=== PATIENT | male | born 1935 | race Caucasian/White ===

== ENCOUNTER 2018-09-09 06:38 | Day surgery (SDC) | payer MEDICARE ==
[~2018-09-09 06:38] MED LIST: BALANCED SALT IRRIG SOLN COMB1 500 ML, EPINEPHRINE-PF 1:1000 0.5 MG IO ONE
[2018-09-09] MEDS ORDERED: IV NORMAL SALINE 1000 ML BAG IV ONE (06:39)
[2018-09-09] MEDS ORDERED: CIPROFLOXACIN 0.3% OPHT DROP 2.5 ML BOTTLE ONE (06:47)
[2018-09-09] MEDS ORDERED: KETOROLAC 0.5% OPHT DROP 3 ML BOTTLE ONE (06:47)
[2018-09-09] MEDS ORDERED: TROPICAMIDE 1% OPHT DROP 3 ML BOTTLE ONE (06:47)
[2018-09-09] MEDS ORDERED: CYCLOPENTOLATE 1% OPHT DROP 2 ML BOTTLE ONE (06:48)
[2018-09-09] MEDS ORDERED: PHENYLEPHRINE 2.5% OPHT DROP 2 ML BOTTLE ONE (06:48)
[2018-09-09] MEDS ORDERED: MOXIFLOXACIN HCL 3 ML OPHT DROPS ONE (07:47)
[2018-09-09] MEDS ORDERED: TIMOLOL MALEATE 0.5% OPHT DROP 5 ML BOTTLE ONE (07:48)
[2018-09-09] MEDS ORDERED: ACETYLCHOLINE CHLORIDE 1% OPHT 1 EA KIT ONE (07:48)
[2018-09-09] MEDS ORDERED: HYALURONATE SODIUM 8.5 MG/0.85 ML DISP.SYRIN ONE (07:48)
[2018-09-09] MEDS ORDERED: TETRACAINE HCL 0.5% OPHT DROP 2 ML BOTTLE ONE (07:48)
[2018-09-09] MEDS ORDERED: NEO/POLYMYX B/DEXAME OPHT OINT 3.5 GM TUBE ONE (07:48)
[2018-09-09] MEDS ORDERED: HYALURONIDASE,OVINE 200 UNITS/ML VIAL ONE (07:48)
[2018-09-09] MEDS ORDERED: BALANCED SALT IRRIG SOLN COMB2 15 ML IRRIG.SOLN ONE (07:48)
[2018-09-09] MEDS ORDERED: LIDOCAINE-MPF 2% 5 ML VIAL ONE (07:48)
[2018-09-09] MEDS ORDERED: HYALURONATE SODIUM 12.8 MG/0.8 ML DISP.SYRIN ONE (07:49)
[2018-09-09] MEDS ORDERED: FENTANYL CITRATE 100 MCG/2 ML AMPUL ONE (07:54)
[2018-09-09] MEDS ORDERED: BALANCED SALT IRRIG SOLN COMB1 500 ML ONE (08:33)
== END 2018-09-09 10:15 | disposition home or self-care (01) ==
LOC: DS 06:38
PROVIDERS: ATTEND Ophthalmology
DX: E11.36 Type 2 diabetes mellitus with diabetic cataract (principal); I10 Essential (primary) hypertension; K29.70 Gastritis, unspecified, without bleeding; Z98.890 Other specified postprocedural states; Z79.899 Other long term (current) drug therapy; Z88.8 Allergy status to other drugs, medicaments and biological substances; E66.9 Obesity, unspecified; D64.9 Anemia, unspecified; Z87.891 Personal history of nicotine dependence
CPT/HCPCS: 66984; 71045; 82962; J0171; J3010; J3471; J3490; J7321 ×2; V2632; A4663; J7030

== ENCOUNTER 2019-04-26 09:27 | Day surgery (SDC) | payer MEDICARE ==
[2019-04-26] MEDS ORDERED: CIPROFLOXACIN 0.3% OPHT DROP 2.5 ML BOTTLE ONE (09:46)
[2019-04-26] MEDS ORDERED: FENTANYL CITRATE 100 MCG/2 ML AMPUL ONE (09:50)
[2019-04-26] MEDS ORDERED: PILOCARPINE 2% ONE (09:50)
[2019-04-26 09:52] LABS: BASOPHILS # (AUTO) 0.1 K/uL (0.0-8.0); BASOPHILS % (AUTO) 0.6 % (0.0-2.0); EOSINOPHILS # (AUTO) 0.2 K/uL (0.0-0.7); EOSINOPHILS % (AUTO) 2.1 % (0.0-7.0); HEMATOCRIT 43.8 % (36.7-47.1); HEMOGLOBIN 14.4 g/dL (12.5-16.3); LYMPHOCYTES # (AUTO) 2.8 K/uL (20.0-40.0); LYMPHOCYTES % (AUTO) 26.9 % (20.5-51.5); MEAN CORPUSCULAR HEMOGLOBIN 30.3 uug (23.8-33.4); MEAN CORPUSCULAR HGB CONC 33 g/dL (32.5-36.3); MEAN CORPUSCULAR VOLUME 92.4 fL (73.0-96.2); MONOCYTES # (AUTO) 0.9 K/uL (2.0-10.0); MONOCYTES % (AUTO) 8.2 % (0.0-11.0); NEUTROPHILS # (AUTO) 6.6 K/uL (1.8-8.9); NEUTROPHILS % (AUTO) 62.2 % (38.5-71.5); PLATELET COUNT (AUTO) 184 K/uL (152-348); RED BLOOD CELL COUNT(AUTO) 4.74 MIL/uL (4.06-5.63); WHITE BLOOD COUNT (AUTO) 10.6 K/uL (3.6-10.2)
[2019-04-26] MEDS ORDERED: ACETYLCHOLINE CHLORIDE 1% OPHT 1 EA KIT ONE (09:57)
[2019-04-26] MEDS ORDERED: BALANCED SALT IRRIG SOLN COMB2 15 ML IRRIG.SOLN ONE (09:57)
[2019-04-26] MEDS ORDERED: BUPIVACAINE PF 0.5% 30 ML VIAL ONE (09:57)
[2019-04-26] MEDS ORDERED: TETRACAINE HCL 0.5% OPHT DROP 2 ML BOTTLE ONE (09:57)
[2019-04-26] MEDS ORDERED: LIDOCAINE-MPF 2% 5 ML VIAL ONE (09:57)
[2019-04-26] MEDS ORDERED: MOXIFLOXACIN HCL 3 ML OPHT DROPS ONE (09:57)
[2019-04-26] MEDS ORDERED: TIMOLOL MALEATE 0.5% OPHT DROP 5 ML BOTTLE ONE (09:57)
[2019-04-26] MEDS ORDERED: HYALURONIDASE,OVINE 200 UNITS/ML VIAL ONE (09:58)
[2019-04-26] MEDS ORDERED: HYALURONATE SODIUM 12.8 MG/0.8 ML DISP.SYRIN ONE (09:58)
[2019-04-26] MEDS ORDERED: TOBRAMYCIN/DEXAMETH OPHT OINT 3.5 GM TUBE ONE (09:59)
[2019-04-26 10:00] LABS: CREATININE 1.1 mg/dL (0.6-1.3); POTASSIUM 4.7 mmol/L (3.5-5.1)
[2019-04-26 10:05] LABS: BILIRUBIN,TOTAL 0.9 mg/dL (0.2-1.0); TOTAL PROTEIN, SERUM 8.1 g/dL (6.4-8.2)
[2019-04-26] MEDS ORDERED: IRR STERIL WATER FOR IRR 1000 ML BOTTLE IR ONE (10:52)
== END 2019-04-26 12:00 | disposition home or self-care (01) ==
LOC: DS 09:27
PROVIDERS: ATTEND Ophthalmology
DX: E11.36 Type 2 diabetes mellitus with diabetic cataract (principal); H26.8 Other specified cataract; K21.9 Gastro-esophageal reflux disease without esophagitis; E03.9 Hypothyroidism, unspecified; J44.9 Chronic obstructive pulmonary disease, unspecified; E78.5 Hyperlipidemia, unspecified; Z79.899 Other long term (current) drug therapy; Z88.1 Allergy status to other antibiotic agents; Z96.41 Presence of insulin pump (external) (internal)
CPT/HCPCS: 36415; 71045; 85025; 85730; A4217; A4663; J0171; J3010; J3471; J3490; J3590; J7030; J7321